=== PATIENT | male | born 1950 | race Caucasian/White ===

== ENCOUNTER 2020-08-01 21:12 | Emergency (ER) | payer MEDICARE, OTHER ==
--- NOTE | 2020-08-01 23:48 | EDM.PDOC ---
ED HPI GENERAL MEDICAL PROBLEM - General Chief Complaint: Genitourinary Problem Stated Complaint: 8 DAYS POST SURGERY/FEVER AND ABD PAIN Time Seen by Provider: 08/01/20 21:39 Source of Information: Reports: Patient History Limitations: Reports: No Limitations - History of Present Illness INITIAL COMMENTS - FREE TEXT/NARRATIVE: Noé is a 70-year-old male presenting to the ED for evaluation of bilateral lower abdominal pain and a low-grade fever. Patient is 8 days out status post decompressive discectomy at L3-L4 and 5 S1. The surgery was performed at [facility]. The patient has been recovering and up until 3 days ago had a Dalton catheter to help with urine flow. He subsequently removed this 3 days ago and is been experiencing increasing low abdominal pain. He does have a history significant for diverticulitis in the past and says that it feels very similar to that. His temperature at home today was 99.9 F. He says he has had some episodes of loose stool. This is also consistent with when he has had diverticulitis in the past. Nausea or vomiting. Lower Abdominal Pain Score (Numeric/FACES): 3 - Related Data Allergies Allergy/AdvReac Type Severity Reaction Status Date / Time [id number] Reductase Allergy Muscle Verified 08/01/20 22:03 Inhibitor Weakness Home Meds: Home Meds Aspirin [Halfprin] 1 tab PO DAILY 08/01/20 [History] Evolocumab [Repatha Syringe] 140 mg SQ ASDIRECTED 08/01/20 [History] Metoprolol Succinate [Toprol XL] 1 tab PO DAILY 08/01/20 [History] Past Medical History Cardiovascular History: Reports: CAD, High Cholesterol, Stents - Infectious Disease History Infectious Disease History: Reports: Chicken Pox, Measles, Mumps, Shingles - Past Surgical History GI Surgical History: Reports: Appendectomy Musculoskeletal Surgical History: Reports: Hip Replacement, Other (See Below) Other Musculoskeletal Surgeries/Procedures:: spinal surgery Social & Family History - Family History Family Medical History: No Pertinent Family History - Tobacco Use Tobacco Use Status *Q: Never Tobacco User - Caffeine Use Caffeine Use: Reports: Coffee - Recreational Drug Use Recreational Drug Use: No ED ROS GENERAL - Review of Systems Review Of Systems: See Below Constitutional: Reports: Fever, Chills HEENT: Reports: No Symptoms Respiratory: Reports: No Symptoms Cardiovascular: Reports: No Symptoms Endocrine: Reports: No Symptoms GI/Abdominal: Reports: Abdominal Pain (Bilateral lower abdominal pain), Diarrhea (Loose stools) : Reports: No Symptoms Musculoskeletal: Reports: Back Pain (Healing from recent back surgery) Skin: Reports: Wound (Surgical wound from the back surgery is appears to be clean, dry, intact) Neurological: Reports: No Symptoms Psychiatric: Reports: No Symptoms Hematologic/Lymphatic: Reports: No Symptoms Immunologic: Reports: No Symptoms ED EXAM, GI/ABD - Physical Exam Exam: See Below Exam Limited By: No Limitations General Appearance: Alert, No Apparent Distress Throat/Mouth: Normal Inspection, Normal Oropharynx, Normal Voice, No Airway Compromise Head: Atraumatic, Normocephalic Neck: Normal Inspection, Supple Respiratory/Chest: No Respiratory Distress, Lungs Clear, Normal Breath Sounds Cardiovascular: Normal Peripheral Pulses, Regular Rate, Rhythm, No Murmur GI/Abdominal Exam: Normal Bowel Sounds, Soft, Tender (Mild tenderness in bilateral lower quadrants). No: Guarding, Rigid, Rebound Extremities: Normal Inspection, Normal Range of Motion Neurological: Alert, Oriented, Normal Cognition, No Motor/Sensory Deficits Psychiatric: Normal Affect, Normal Mood Skin Exam: Warm, Dry, Intact, Wound/Incision (Surgical wound is clean, dry, intact) Lymphatic: No Adenopathy Course - Vital Signs Last Recorded V/S: Last Vital Signs Temp 37.6 C 08/01/20 22:07 Pulse 76 08/01/20 22:07 Resp 15 08/01/20 22:07 BP 136/77 08/01/20 22:07 Pulse Ox 93 L 08/01/20 22:07 - Orders/Labs/Meds Labs: Laboratory Tests 08/01/20 08/01/20 08/01/20 Range/Units 21:44 22:55 22:55 WBC 5.7 (4.5-11.0) K/uL RBC 4.59 (4.30-5.90) M/uL Hgb 14.5 (12.0-15.0) g/dL Hct 44.7 (40.0-54.0) % MCV 97 (80-98) fL MCH 32 H (27-31) pg MCHC 32 (32-36) % Plt Count 248 (150-400) K/uL Neut % (Auto) 65.5 (36-66) % Lymph % (Auto) 25.3 (24-44) % [place] % (Auto) 7.9 H (2-6) % Eos % (Auto) 0.9 L (2-4) % Baso % (Auto) 0.4 (0-1) % C-Reactive Protein 2.31 H (0.0-0.3) mg/dL Urine Color Yellow (YELLOW) Urine Appearance Clear (CLEAR) Urine pH 6.5 (5.0-8.0) Ur Specific [place] 1.025 (1.008-1.030) Urine Protein Negative (NEGATIVE) mg/dL Urine Glucose (UA) Negative (NEGATIVE) mg/dL Urine Ketones Negative (NEGATIVE) mg/dL Urine Occult Blood Negative (NEGATIVE) Urine Nitrite Negative (NEGATIVE) Urine Bilirubin Negative (NEGATIVE) Urine Urobilinogen 0.2 (0.2-1.0) EU/dL Ur Leukocyte Esterase Negative (NEGATIVE) Urine RBC 0-5 (0-5) Urine WBC 0-5 (0-5) Ur Epithelial Cells Rare Amorphous Sediment Not seen Urine Bacteria Rare Urine Mucus Not seen - Re-Assessments/Exams Free Text/Narrative Re-Assessment/Exam: 08/01/20 23:58 the patient has a history of diverticulitis and states that his symptoms are very similar to when he had diverticulitis in the past. Is requesting cefdinir 300 mg twice daily for 10 days and metronidazole 500 mg twice daily for 10 days which typically works for his diverticulitis. His CBC is unremarkable but his CRP is elevated at 2.31. Urinalysis is negative for any infection. I think that this is a reasonable plan. If not improving he will return at which point we will image him but he was trying to avoid any imaging as he has had many scans in the past. 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 Departure - Departure Time of Disposition: 23:46 Disposition: Home, Self-Care 01 Clinical Impression: Bilateral lower abdominal pain, Diverticulitis - Discharge Information Instructions: Abdominal Pain, Adult, Diverticulitis Referrals: Silvio Díaz MD [Primary Care Provider] - Forms: ED Department Discharge Care Plan Goals: I have given you prescriptions for metronidazole 500 mg p.o. twice daily for 10 days as well as cefdinir 300 mg twice daily x10 days for suspected diverticulitis. Your urinalysis was unremarkable for any infection tonight and your CBC was normal. Your C-reactive protein is elevated at 2.31. If you are not improving over the course of the next 3 to 4 days, please follow-up with your primary care provider or return to the ED for reevaluation. Sepsis Event Note (ED) - Evaluation Sepsis Screening Result: No Definite Risk - Focused Exam Vital Signs: Vital Signs Temp Pulse Resp BP Pulse Ox 08/01/20 22:07 37.6 C 76 15 136/77 93 L 08/01/20 21:35 37.6 C 76 15 136/77 93 L - Problem List & Annotations (1) Bilateral lower abdominal pain SNOMED Code(s): 74259170 Code(s): R10.31 - RIGHT LOWER QUADRANT PAIN; R10.32 - LEFT LOWER QUADRANT PAIN Status: Acute Priority: Medium Current Visit: Yes (2) Diverticulitis SNOMED Code(s): 241262706 Code(s): K57.92 - DVTRCLI OF INTEST, PART UNSP, W/O PERF OR ABSCESS W/O BLEED Status: Acute Priority: Medium Current Visit: Yes - Problem List Review Problem List Initiated/Reviewed/Updated: Yes
== END 2020-08-01 23:56 | disposition home or self-care (01) ==
LOC: JP.ED 21:12
DX: K57.32 Diverticulitis of large intestine without perforation or abscess without bleeding (principal); I25.10 Atherosclerotic heart disease of native coronary artery without angina pectoris; E78.00 Pure hypercholesterolemia, unspecified; Z79.82 Long term (current) use of aspirin; Z88.8 Allergy status to other drugs, medicaments and biological substances; Z90.49 Acquired absence of other specified parts of digestive tract
CPT/HCPCS: 36415; 81001; 85025; 86140; 99284

== ENCOUNTER 2023-11-18 06:25 | Day surgery (SDC) | payer MEDICARE, OTHER ==
[2023-11-18 06:53] LABS: HEMATOCRIT 43.2 % (38.4-49.7); HEMOGLOBIN 14.9 g/dL (12.9-16.9); MEAN CORPUSCULAR HEMOGLOBIN 32.4 pg (31.6-35.5); MEAN CORPUSCULAR HGB CONC 34.5 g/dL (31.6-35.5); MEAN CORPUSCULAR VOLUME 93.9 fL (81.4-99.0); RED BLOOD CELL COUNT 4.6 M/uL (4.14-5.76); WHITE BLOOD CELL COUNT,WBC 5.5 K/uL (3.2-11.0)
[2023-11-18 07:15] LABS: A/G RATIO 0.9 (1.2-2.2); ALANINE AMINOTRANSFERASE,ALT 26 U/L (12-78); ALBUMIN 3.3 g/dL (3.4-5.0); ALKALINE PHOSPHATASE 90 U/L (46-116); ANION GAP 6.5 mmol/L (5.0-14.0); ASPARTATE AMNIOTRANSFERASE,AST 25 U/L (15-37); BILIRUBIN TOTAL 0.2 mg/dL (0.2-1.0); BLOOD UREA NITROGEN,BUN 17 mg/dL (7-18); CALCIUM 8.9 mg/dL (8.5-10.1); CARBON DIOXIDE,CO2 30 mmol/L (21-32); CHLORIDE,CL 105 mmol/L (100-108); CREATININE 1.2 mg/dL (0.8-1.3); EST CRCL DRUG DOSING (CG) 53.83 mL/min; ESTIMATED GFR 64 mL/min (>60); GLUCOSE RANDOM 111 mg/dL (74-106); POTASSIUM,K 4.3 mmol/L (3.6-5.2); SODIUM,NA 141 mmol/L (140-148)
[2023-11-18] MEDS ORDERED: fentaNYL 250 MCG/5 ML SDV ONE (07:18)
[2023-11-18] MEDS ORDERED: Rocuronium 50 MG/5 ML Vial ONE (07:19)
[2023-11-18] MEDS ORDERED: Neostigmine Methylsulfate 10 MG/10 ML MDV ONE (07:19)
[2023-11-18] MEDS ORDERED: Ondansetron 4 MG/2 ML SDV ONE (07:19)
[2023-11-18] MEDS ORDERED: Succinylcholine 200 MG/10 ML MDV ONE (07:19)
[2023-11-18] MEDS ORDERED: Glycopyrrolate 0.2 MG/ML 5 ML MDV ONE (07:19)
[2023-11-18] MEDS ORDERED: Dexamethasone 4 MG/ML SDV ONE (07:19)
[2023-11-18] MEDS ORDERED: Propofol 200 MG/20 ML SDV ONE (07:19)
[2023-11-18] MEDS: Sodium Chloride 0.9% 1,000 ML IV SCH (07:24)
[2023-11-18] MEDS: metroNIDAZOLE/Normal Saline 500 MG in Premix Bag 1 BAG IV ONE (07:45)
[2023-11-18] MEDS: ceFAZolin 2 GM in Premix Bag 1 BAG IV ONE (08:30)
[2023-11-18] MEDS: Ropivacaine 44 ML, dexAMETHasone 8 MG, EPINEPHrine 0.4 MG, Sodium Chloride 0.9% 33.6 ML NERVRT SCH (08:30)
[2023-11-18] MEDS: Bupivacaine 0.5%/EPINEPHrine 1:200,000 50 ML MDV ONE (08:30)
[2023-11-18] MEDS ORDERED: fentaNYL 100 MCG/2 ML SDV ONE (09:16)
[2023-11-18] MEDS: Acetaminophen/HYDROcodone 325-5 MG Tab PO PRN (10:59)
== END 2023-11-18 12:24 | disposition home or self-care (01) ==
LOC: JP.SDS 06:25
PROVIDERS: ATTEND Surgery
DX: K40.30 Unilateral inguinal hernia, with obstruction, without gangrene, not specified as recurrent (principal); D17.6 Benign lipomatous neoplasm of spermatic cord; I25.10 Atherosclerotic heart disease of native coronary artery without angina pectoris; E78.5 Hyperlipidemia, unspecified
CPT/HCPCS: 00840; 36415; 49650; 80053; 85027; A9270; C1781; J0171; J0330; J0690; J1100; J1596; J1836; J2405; J2704; J2710; J2795; J3010; J3490; J7030